=== PATIENT | male | born 1980 | race Caucasian/White ===

== ENCOUNTER 2019-10-22 06:59 | Emergency (ER) | payer SELFPAY ==
[2019-10-22 07:04] VITALS: BP 144/92; PULSE 83; RESP 16; TEMP 37.1; O2SAT 100; BMI 25.3
--- NOTE | 2019-10-22 07:20 | ED.DENTAL ---
HPI - Dental/Oral General Chief complaint: Dental/Oral Stated complaint: infection in gum Time Seen by Provider: 10/22/19 07:10 Source: patient Mode of arrival: Ambulatory Limitations: no limitations History of Present Illness HPI Narrative: The patient presents with swelling to his upper lip, and dental pain. His multiple caries, with missing teeth. He feels certainly has a dental infection. Pain and swelling started yesterday. He has no fever chills. He has no difficulty swallowing. He denies chest pain or dyspnea. He does feel fatigued. Is no recent history of dental problems or dental procedures. He does not have a local dentist. He denies headache, sore throat or cough. He has no dyspnea. He has no fever chills. Related Data Home Medications Medication Instructions Recorded Confirmed oxycodone-acetaminophen [Percocet] 2 tab PO Q6HP #0 11/25/10 trazodone 150 mg PO HS #0 11/25/10 Previous Rx's Medication Instructions Recorded clindamycin HCl [Cleocin HCl] 300 mg PO Q8H 10 Days #30 cap 10/22/19 tramadol 50 mg PO Q6-8H PRN #14 tab 10/22/19 Allergies Allergy/AdvReac Type Severity Reaction Status Date / Time SULFA (sulfonamide) Allergy Unknown Uncoded 05/18/17 11:55 Review of Systems Constitutional Constitutional: Denies chills, Denies fever(s), Denies headache(s), Reports lethargy and Reports weakness Eyes Eyes: Denies change in vision and Denies eye discharge ENT Ears, Nose, Mouth, and Throat: Reports dental pain, Denies otalgia, Denies headache(s), Denies mouth pain and Denies odynophagia Comments: Cardiovascular Cardiovascular: Denies chest pain, Denies rapid heart rate and Denies dyspnea Respiratory Respiratory: Denies cough and Denies dyspnea Gastrointestinal Gastrointestinal: Denies odynophagia Integumentary/Breasts Skin/Breast: Denies lesions and Denies rash Neurologic Neurologic: Denies headache(s) and Reports weakness Patient History Social History Smoking Status: Current every day smoker Smoking Status: Current every day smoker tobacco type: cigarettes alcohol intake frequency: other Substance Use Type: heroin Exam Initial Vital Signs Initial Vital Signs: Vital Signs Temperature 98.7 F 10/22/19 07:04 Pulse Rate 83 10/22/19 07:04 Respiratory Rate 16 10/22/19 07:04 Blood Pressure 144/92 H 10/22/19 07:04 Pulse Oximetry 100 10/22/19 07:04 Const General: cooperative, disheveled and No ill appearing Nutritional Appearance: average body habitus HENMT Face and sinus: other (Edema to the central upper lip.) Mouth: oral mucosae normal Teeth and gingiva: caries (Multiple. His teeth 7. And 9 are missing.) and other (Fluctuance and tenderness originating from root of tooth #9. ) Throat: posterior oropharynx normal Neck Neck: trachea midline and No lymphadenopathy Resp Auscultation: clear to auscultation bilaterally Cardio Rate: regular rate Rhythm: regular rhythm Heart Sounds: no click, no gallops, no murmurs and no rubs Pulses: normal peripheral pulses Skin General: no rashes or lesions noted Course Course Course Narrative: The patient is clinically improved after receiving IV Toradol, Decadron and clindamycin. Facial pain is decreased. Swelling to the upper lip is decreased. He will be discharged on ibuprofen, tramadol and clindamycin. Orders Ordered: Discontinued Medications Dexamethasone 20 mg/ Sodium (Chloride) 52 mls @ 208 mls/hr IV NOW ONE Stop: 10/22/19 07:25 Last Infusion: 10/22/19 08:46 Dose: 0 mls/hr Documented by: Admin: 10/22/19 08:25 Dose: 208 mls/hr Documented by: TANA Clindamycin Phosphate (Cleocin) 900 mg in 50 mls @ 50 mls/hr IV NOW ONE Stop: 10/22/19 08:24 Last Admin: 10/22/19 08:26 Dose: 50 mls/hr Documented by: TANA Ketorolac Tromethamine (Toradol) 30 mg IV NOW ONE Stop: 10/22/19 07:25 Last Admin: 10/22/19 08:25 Dose: 30 mg Documented by: TANA Vital Signs Vital signs: Vital Signs - 8 hr 10/22/19 07:04 Temperature 98.7 F Pulse Rate 83 Respiratory Rate 16 Blood Pressure 144/92 H Pulse Oximetry 100 Discharge Plan Departure Patient Disposition: Home Clinical Impression: Dental abscess Instructions: Tooth Abscess Activity Restrictions/Additional Instructions: Advil 3 tabs every 6 hours as needed for pain. Tramadol every 6 hours as needed for added pain control. Clindamycin 3 times daily for 10 days. This is the antibiotic. You should arrange follow-up to see a dentist in approximately 2 weeks. Return the ER if you experience increased facial pain, fever, worsening of condition. Prescriptions: New tramadol 50 mg tablet 50 mg PO Q6-8H PRN (Reason: pain) Qty: 14 RF: 0 clindamycin HCl [Cleocin HCl] 300 mg capsule 300 mg PO Q8H 10 Days Qty: 30 RF: 0 No Action oxycodone-acetaminophen [Percocet] 5 MG/325 MG tablet 2 tab PO Q6HP Qty: 0 RF: 0 trazodone 150 MG tablet 150 mg PO HS Qty: 0 RF: 0
--- NOTE | 2019-10-22 07:21 | PC.NURSE ---
fractured front left tooth. Upper lip visibly swollen. States tooth has been fractured for a long time. Reports does not have a dentist. Provider at bedside
--- NOTE | 2019-10-22 07:42 | PC.NURSE ---
patient reports he has many years of IV drug use. States he used his leg yesterday to gain Venous access. Attempted an IV start in the back of his lright arm with no success. MARGARET called for ultrasound guided IV. Pateint states other facilities have needed to use ultrasound to place IVs.
[2019-10-22] MEDS: dexAMETHasone 20 MG in SODIUM CHLORIDE 0.9% 50 ML 208 ML IV (08:25)
[2019-10-22] MEDS: KETOROLAC 60 MG/2 ML VIAL 30 MG IV (08:25)
[2019-10-22] MEDS: CLINDAMYCIN 900 MG/50 ML PIGGYBACK 50 MG IV (08:26)
[2019-10-22 10:06] VITALS: BP 126/76; PULSE 94; RESP 14; O2SAT 100
--- NOTE | 2020-01-12 07:43 | PC.NURSE ---
Late entry, cleocin infused completed one hour after starting medication, 50ml intake IV.
== END 2019-10-22 10:07 | disposition home or self-care (01) ==
PROVIDERS: Emergency Provider Emergency Medicine
DX: K04.7 Periapical abscess without sinus (principal)
CPT/HCPCS: 96365; 96368; 96375; 99283; 99284; J1100; J1885

== ENCOUNTER 2022-08-23 19:01 | Emergency (ER) | payer SELFPAY ==
[2022-08-23 19:22] VITALS: BP 138/78; PULSE 106; RESP 18; TEMP 37.2; O2SAT 96; BMI 25.7
[2022-08-24 01:56] VITALS: BP 146/81; PULSE 96; RESP 14; O2SAT 97
--- NOTE | 2022-08-24 02:48 | ED.GENADULT ---
HPI - General Adult General Chief complaint: Ear Stated complaint: Headache, fluid in r ear, SOB Time Seen by Provider: 08/24/22 02:14 Source: patient Mode of arrival: Ambulatory History of Present Illness HPI narrative: 41-year-old gentleman currently with housing instability polysubstance use presents complaining of right ear drainage, nasal stuffiness, myalgias cough all getting worse for the last 4 days. He describes low-grade fevers no nausea vomiting or abdominal pain. Related Data Home Medications Medication Instructions Recorded Confirmed oxycodone-acetaminophen 5 mg-325 2 tab PO Q6HP ##0 11/25/10 mg tablet (Percocet) trazodone 150 mg tablet 150 mg PO HS ##0 11/25/10 Previous Rx's Medication Instructions Recorded tramadol 50 mg tablet 50 mg PO Q6-8H PRN pain #14 tabs 10/22/19 Allergies Allergy/AdvReac Type Severity Reaction Status Date / Time SULFA (sulfonamide) Allergy Unknown Uncoded 05/18/17 11:55 Review of Systems Review of Systems Narrative: Pertinent positive and negative findings as per HPI Patient History Social History Smoking Status: Current every day smoker Smoking Status: Current every day smoker tobacco type: cigarettes alcohol intake frequency: other Substance Use Type: other Exam Initial Vital Signs Initial Vital Signs: Vital Signs Temperature 99 F 08/23/22 19:22 Pulse Rate 106 H 08/23/22 19:22 Respiratory Rate 18 08/23/22 19:22 Blood Pressure 138/78 08/23/22 19:22 Pulse Oximetry 96 08/23/22 19:22 Oxygen Delivery Method Room Air 08/23/22 19:22 General: Chronically ill-appearing gentleman appears unwell but Able to give a complete and coherent history. HEENT: dry mucous membranes, normal sclera with reactive pupils, left tympanic membrane occluded with cerumen, right tympanic membrane perforated with serous drainage Neck: Minor anterior cervical adenopathy supple Respiratory: Lungs with slight wheeze in all lung franco rhonchi in right lung franco Cardiac: Regular rate and rhythm no murmurs no bruits Abdomen: Soft, nontender, good bowel tones, no flank pain Skin: Pale, areas of excoriation Neurologic: Grossly neurologically intact with no obvious asymmetries or abnormalities Extremities: Hyperemic and swollen hands consistent with IV drug use and chronically being exposed to elements outside Psych: Cooperative, Course Vital Signs Vital signs: Vital Signs - 8 hr 08/23/22 19:22 08/24/22 01:56 Temperature 99 F Pulse Rate 106 H 96 H Respiratory Rate 18 14 Blood Pressure 138/78 146/81 H Pulse Oximetry 96 97 Oxygen Delivery Method Room Air Room Air Medical Decision Making MDM Narrative Medical decision making narrative: CC: Cough, ear drainage acute issue uncertain prognosis Complicating co-morbidities: Polysubstance use Data collected from: patient, Social determinants of health that may influence the patients condition: Currently homeless Differential considered: Viral syndrome, pneumonia, otitis media, Exam documented above, pertinent findings include: Perforated right tympanic membrane with serous drainage, rhonchi in right posterior lung franco with scattered wheeze Discussion: 41-year-old gentleman with history of methamphetamine and fentanyl use, tobacco abuse symptoms that sound like they were viral initially with tympanic membrane rupture on the right. Now with productive cough and low-grade fevers increasing malaise. Clinically has a right-sided pneumonia. Unfortunately this gentleman does not have access to medical care or options for filling prescriptions. He is given a prepack for Cortisporin ear drops to use on the right side. He is also given a combination of prescription and prepack of amoxicillin to try to get a couple of days of treatment for him. We did discuss his fentanyl and methamphetamine use to see if he was interested in treatment or detox. States he currently is in the process of making some arrangements and does not want to pursue any additional treatment options from the emergency department. At this point he is not septic he is alert and appropriate he is safe for discharge home Discharge Plan Departure Patient Disposition: Home Clinical Impression: Acute otitis media of right ear with perforated tympanic membrane, Homelessness, Polysubstance (including opioids) dependence, daily use Pneumonia Qualifiers: Pneumonia type: due to unspecified organism Laterality: right Lung location: upper lobe of lung Qualified Code(s): J18.9 - Pneumonia, unspecified organism Instructions: DI for Pneumonia -- Adult, DI for Otitis Media (Middle Ear Infection)-Child Activity Restrictions/Additional Instructions: Thank you for coming in today I am sorry that you are feeling so unwell. I suspect that your symptoms started with a viral syndrome however in clearly have secondary bacterial pneumonia developing the right upper lung. You also have a ruptured tympanic membrane with discharge suggesting an otitis media (middle ear infection) I have got you started on a dose of amoxicillin in the emergency department as well as ear drops for the right ear. I have given you additional amoxicillin to last for the next 2 days and a prescription for an additional 5 days. Please take 500 mg of amoxicillin every 8 hours. Using 400 mg of ibuprofen (2 [id number] pills) and 1 Tylenol every 6 hours can be very helpful in controlling pain. If you find that you are getting worse or would like any help with detox or treatment for your methamphetamine and opioid use please feel free to return to the emergency department. Prescriptions: No Action oxycodone-acetaminophen [Percocet] 5 MG/325 MG tablet 2 tab PO Q6HP Qty: 0 trazodone 150 MG tablet 150 mg PO HS Qty: 0 tramadol 50 mg tablet 50 mg PO Q6-8H PRN (Reason: pain) Qty: 14 0RF Stand Alone Forms: Patient Portal/API
[2022-08-24] MEDS: AMOXICILLIN 250 MG PREPACK 1 BOTTLE MISC (03:23)
[2022-08-24] MEDS: NEOMY/POLYM B/HC OTIC 10 ML 4 DROPS EAR-RIGHT (03:23)
[2022-08-24] MEDS: AMOXICILLIN 250 MG CAPSULE 1000 MG PO ×2 (03:23→03:54)
[2022-08-24] MEDS: ACETAMINOPHEN 325 MG TABLET PO (03:53)
[2022-08-24] MEDS: IBUPROFEN 400 MG TABLET PO (03:53)
== END 2022-08-24 04:03 | disposition home or self-care (01) ==
PROVIDERS: Emergency Provider Emergency Medicine
DX: J18.9 Pneumonia, unspecified organism (principal); H66.91 Otitis media, unspecified, right ear; H72.91 Unspecified perforation of tympanic membrane, right ear; F11.20 Opioid dependence, uncomplicated; Z59.00 Homelessness unspecified
CPT/HCPCS: 99283

== ENCOUNTER 2025-01-18 19:43 | Emergency (ER) | payer OTHER, SELFPAY ==
[2025-01-18 19:56] VITALS: BP 136/72; PULSE 90; RESP 16; TEMP 36.7; O2SAT 99; BMI 29.2
--- NOTE | 2025-01-18 20:01 | ED.EXTPRO ---
HPI - Extremity Problem General Chief complaint: Extremity Problem,Nontraumatic Stated complaint: Rt leg px/injury x 6 days Time Seen by Provider: 01/18/25 20:01 Source: patient Mode of arrival: Ambulatory History of Present Illness HPI Narrative: 44-year-old male patient with a history of tobacco and fentanyl use disorder who complains of right medial thigh pain for 6 days with no known injury. Hurts to ambulate. Related Data Home Medications ?Medication ?Instructions ?Recorded ?Confirmed oxycodone-acetaminophen 5 mg-325 2 tab PO Q6HP ##0 11/25/10 mg tablet (Percocet) trazodone 150 mg tablet 150 mg PO HS ##0 11/25/10 No Known Home Medications 09/24/24 09/24/24 Previous Rx's ?Medication ?Instructions ?Recorded tramadol 50 mg tablet 50 mg PO Q6-8H PRN pain #14 tabs 10/22/19 amoxicillin 500 mg capsule 500 mg PO TID #21 caps 08/24/22 Allergies Allergy/AdvReac Type Severity Reaction Status Date / Time SULFA (sulfonamide) Allergy Unknown Uncoded 01/18/25 20:00 Review of Systems Review of Systems ROS Unobtainable: All systems reviewed & are unremarkable except as noted in HPI and below Musculoskeletal Musculoskeletal: Reports as per HPI Patient History tobacco type: cigarettes alcohol intake frequency: other Exam Narrative Exam Narrative: General: Alert and conversant. No distress. Appears well nourished and well hydrated Lungs: Nonlabored respiration Musculoskeletal: Mild tenderness of the soft tissues of the right medial thigh with no discoloration, warmth, cord or mass. Range of motion intact. Otherwise Exam of the extremities, axial spine and ribcage reveals no deformity, bony tenderness or swelling. Range of motion intact Neuro: Alert and oriented. Cranial nerves, motor, sensory and cerebellar all grossly intact. No focal deficit Skin: Warm and normal color. No rashes Psychological: Normal affect and interaction. No evidence of delusion or psychosis. Normal mood. Initial Vital Signs Initial Vital Signs: Vital Signs Temperature 98.1 F 01/18/25 19:56 Pulse Rate 90 01/18/25 19:56 Respiratory Rate 16 01/18/25 19:56 Blood Pressure 136/72 01/18/25 19:56 Pulse Oximetry 99 01/18/25 19:56 Oxygen Delivery Method Room Air 01/18/25 19:56 Course Vital Signs Vital signs: Vital Signs - 8 hr 01/18/25 19:56 Temperature 98.1 F Pulse Rate 90 Respiratory Rate 16 Blood Pressure 136/72 Pulse Oximetry 99 Oxygen Delivery Method Room Air MDM - Extremity (Nontraumatic) MDM Narrative Medical decision making narrative: Patient has right medial thigh soft tissue tenderness which appears to be musculoskeletal with no evidence of infection, mass, clot or vascular involvement. Plan will be cold or warm packs, ibuprofen and modified rest. Follow up with primary care if not improving as expected Discharge Plan Departure Patient Disposition: Home Clinical Impression: Acute thigh pain Instructions: Muscle Strain Activity Restrictions/Additional Instructions: Assessment: Medial right thigh pain with unremarkable exam other than pain that appears to be soft tissue/muscular. Does not appear to be infectious or vascular Plan: Cold or warm packs with ibuprofen. Follow up with your doctor for recheck if not improving. Return to the ER if worse Prescriptions: No Action oxycodone-acetaminophen [Percocet] 5 MG/325 MG tablet 2 tab PO Q6HP Qty: 0 trazodone 150 MG tablet 150 mg PO HS Qty: 0 amoxicillin 500 mg capsule 500 mg PO TID Qty: 21 0RF No Known Home Medications tramadol 50 mg tablet 50 mg PO Q6-8H PRN (Reason: pain) Qty: 14 0RF Stand Alone Forms: Patient Portal/API
== END 2025-01-18 20:09 | disposition home or self-care (01) ==
PROVIDERS: Emergency Provider Emergency Medicine
DX: M79.651 Pain in right thigh (principal)
CPT/HCPCS: 99281